=== PATIENT | male | born 1960 | race Caucasian/White ===

== ENCOUNTER 2024-06-18 22:29 | Emergency (ER) | payer BC ==
[~2024-06-18] VITALS: Ht 185.4 cm; Wt 84.8 kg
[2024-06-18 23:38] VITALS: TEMP 98.5
[2024-06-18 23:39] VITALS: BP 145/90; O2SAT 97
[2024-06-19] MEDS ORDERED: CIPR7.5D9 LEFT EAR (00:13)
== END 2024-06-19 00:21 | disposition home or self-care (01) ==
LOC: ER 22:38
DX: H92.02 Otalgia, left ear (principal); Z98.890 Other specified postprocedural states; Z79.899 Other long term (current) drug therapy; Z88.2 Allergy status to sulfonamides